=== PATIENT | female | born 2000 | race African-American/Black ===

== ENCOUNTER 2019-08-17 15:09 | Inpatient (IN) ==
[2019-08-17] MEDS ORDERED: MEPERIDINE 50 MG/1 ML VIAL IV PRN (15:30)
[2019-08-17] MEDS ORDERED: ONDANSETRON 4 MG/2 ML VIAL IV PRN (15:30)
[2019-08-17] MEDS ORDERED: DINOPROSTONE VAG GEL 10 MG SYRINGE VAG ONE (15:35)
[2019-08-17 16:00] LABS: Basophils % 0.2 % (0.0-0.8); Eosinophils # 0.1 10*3/uL (0.0-0.87); Eosinophils % 1.1 % (0.00-10.9); Hematocrit 37.5 VOL% (35.7-47.0); Hemoglobin 11.5 GM/DL (12.0-16.0); Immature Granulocytes % 0.3 %; Immature Granulocytes Absolute 0.03 #; Lymphocytes # 2.6 10*3/uL (1.4-4.0); Mean Corpuscular HGB Conc 30.7 GM/DL (32-36); Mean Corpuscular Volume 81.7 FL (87-102); Mean Platelet Volume 10.4 FL (9.6-12.0); Monocytes % 7.8 % (1.7-12.7); Neutrophils % 62.6 % (38.7-73.9); Platelet Count 239 T/CUMM (130-400); Red Blood Count 4.59 MC/CUMM (3.8-5.5); Red Cell Distribution Width 15.6 % (9.3-17.3); White Blood Count 9.4 T/CUMM (4-12)
[2019-08-17 16:32] LABS: Alanine Aminotransferase 27 U/L (13-56); Albumin 2.8 G/DL (3.4-5.0); Alkaline Phosphatase 218 U/L (45-117); Aspartate Amino Transferase 24 U/L (0-37); Bilirubin,Total < 0.39 MG/DL (0.2-1.0); Blood Urea Nitrogen 5 MG/DL (7-18); Calcium 9.2 MG/DL (8.5-10.1); Estimated Glom Filtration Rate 185 ML/MIN; Glucose 87 MG/DL (74-106); Osmolality,Calculated 265.1 MOS/KG (273-304); Total Protein 7.1 G/DL (6.4-8.3)
[2019-08-17] MEDS: BUTORPHANOL 2 MG/ML VIAL IV PRN ×2 (20:25→23:35)
[2019-08-18] MEDS: LACTATED RINGERS 1,000 ML IV SCH ×2 (02:00→11:13)
[2019-08-18] MEDS ORDERED: OXYTOCIN/LR 20 UNIT/1,000 ML BAG IV SCH (02:00)
[2019-08-18] MEDS ORDERED: CITRIC ACID/SODIUM CITRATE 30 ML UDCUP PO ONE (08:50)
[2019-08-18] MEDS ORDERED: LACTATED RINGERS 1,000 ML IV ONE (08:50)
[2019-08-18] MEDS ORDERED: diphenhydrAMINE 50 MG/1 ML VIAL IV PRN ×2 (08:50)
[2019-08-18] MEDS ORDERED: NALOXONE 0.4 MG/ML VIAL IV PRN (08:50)
[2019-08-18] MEDS ORDERED: FAMOTIDINE 20 MG/2 ML VIAL IV ONE (08:50)
[2019-08-18] MEDS ORDERED: ePHEDrine 50 MG/ML AMP IV PRN (08:50)
[2019-08-18] MEDS ORDERED: fentaNYL 2 MCG/ROPIV 0.2% EPID 100 ML EPIDURAL SCH (09:00)
[2019-08-18] MEDS ORDERED: oxyCODONE/ACETAMINOPHEN 5-325 MG TABLET PO PRN ×2 (09:27)
[2019-08-18] MEDS ORDERED: RHO(D) IMMUNE GLOBULIN 300 MCG SYRINGE IM ONE ×2 (09:27→18:09)
[2019-08-18] MEDS ORDERED: LANOLIN 50% CREAM 0.3 OZ TUBE TOP PRN (09:27)
[2019-08-18] MEDS ORDERED: WITCH HAZEL PADS 100/JAR TOP PRN (09:27)
[2019-08-18] MEDS ORDERED: HYDROCORTISONE 2.5% RECTAL CREAM 30 GM TUBE TOP PRN (09:27)
[2019-08-18] MEDS ORDERED: DIPH/TET/ACEL PERT BOOSTER VACCINE 0.5 ML VIAL IM ONE (09:27)
[2019-08-18] MEDS ORDERED: DOCUSATE SODIUM 100 MG CAPSULE PO SCH (09:27)
[2019-08-18] MEDS ORDERED: ACETAMINOPHEN 325 MG TABLET PO PRN ×2 (09:27→18:09)
[2019-08-18] MEDS ORDERED: IBUPROFEN 800 MG TABLET PO PRN (09:27)
[2019-08-18] MEDS ORDERED: MEASLES/MUMPS/RUBELLA VACCINE 0.5 ML VIAL SUBCUT ONE (09:27)
[2019-08-18] MEDS ORDERED: BISACODYL 10 MG SUPP RECTAL PRN (09:27)
[2019-08-18] MEDS ORDERED: OXYTOCIN/LR 20 UNIT/1,000 ML BAG IV ONE ×2 (09:27→18:09)
[2019-08-18] MEDS ORDERED: BENZOCAINE 20%/MENTHOL 0.5% SPRAY 56 GM CAN TOP PRN (09:27)
[2019-08-18] MEDS ORDERED: ONDANSETRON 4 MG/2 ML VIAL ONE ×2 (09:36→18:03)
[2019-08-18 11:36] LABS: Apearance,Urine CLEAR (Clear); Bilirubin,Urine Negative (Negative); Blood, Urine Negative (Negative); Glucose,Urine (UA) Negative (Negative); Ketones,Urine Negative (Negative); Mucus,Urine Occasional /LPF (Occasional); Nitrite,Urine Negative (Negative); Protein,Urine Negative; RBC,Urine 1 /HPF (0-4); Squamous Epithelial Cell,Urine Occasional /HPF (0-10); Urine Color Yellow (Yellow); Urine Specific Gravity 1.014 (1.001-1.035); Urine Urobilinogen < 2.0 EU/DL (0.2-1.0); WBC,Urine 1 /HPF (0-6)
[2019-08-18] MEDS ORDERED: OXYTOCIN/LR 30 UNIT/1,000 ML BAG IV ONE (16:35)
[2019-08-18] MEDS ORDERED: OXYTOCIN 10 UNIT/ML VIAL IM ONE (16:35)
[2019-08-18] MEDS ORDERED: ceFAZolin 3,000 MG in SYRINGE 1 EACH IV ONE (16:35)
[2019-08-18] MEDS ORDERED: LIDOCAINE MPF 2% /EPI 20 ML VIAL ONE (18:03)
[2019-08-18] MEDS ORDERED: MORPHINE 10 MG/10 ML VIAL ONE (18:03)
[2019-08-18] MEDS ORDERED: SIMETHICONE CHEW 80 MG TABLET PO PRN (18:09)
[2019-08-18] MEDS ORDERED: ONDANSETRON 4 MG/2 ML VIAL IV PRN (18:09)
[2019-08-18] MEDS ORDERED: LACTATED RINGERS 1,000 ML IV SCH (18:30)
[2019-08-19] MEDS: ceFAZolin 1,000 MG in SYRINGE 1 EACH IV SCH ×2 (01:29→09:59)
[2019-08-19] MEDS ORDERED: diphenhydrAMINE 50 MG/1 ML VIAL ONE (03:54)
[2019-08-19] MEDS ORDERED: diphenhydrAMINE 50 MG/1 ML VIAL IV PRN (03:55)
[2019-08-19 05:24] LABS: Basophils % 0.2 % (0.0-0.8); Eosinophils % 0.2 % (0.00-10.9); Hematocrit 35.8 VOL% (35.7-47.0); Hemoglobin 11.1 GM/DL (12.0-16.0); Immature Granulocytes % 0.5 %; Immature Granulocytes Absolute 0.09 #; Lymphocytes # 2.5 10*3/uL (1.4-4.0); Lymphocytes % 13.5 % (21.3-54.2); Mean Corpuscular Volume 82.1 FL (87-102); Mean Platelet Volume 11.1 FL (9.6-12.0); Monocytes % 8.3 % (1.7-12.7); Neutrophils % 77.3 % (38.7-73.9); Platelet Count 220 T/CUMM (130-400); Red Blood Count 4.36 MC/CUMM (3.8-5.5); Red Cell Distribution Width 15.6 % (9.3-17.3); White Blood Count 18.7 T/CUMM (4-12)
[2019-08-19] MEDS: DOCUSATE SODIUM 100 MG CAPSULE PO SCH ×3 (07:39→21:40)
[2019-08-19] MEDS: MULTIVITAMIN (PRENATAL) TABLET PO SCH (09:41)
[2019-08-19] MEDS: MAGNESIUM HYDROXIDE SUSP 30 ML UDCUP PO PRN (21:40)
[2019-08-19] MEDS: IBUPROFEN 800 MG TABLET PO PRN (21:40)
[2019-08-19] MEDS: METOCLOPRAMIDE 10 MG TABLET PO SCH (22:00)
[2019-08-20] MEDS: METOCLOPRAMIDE 10 MG TABLET PO SCH ×2 (04:58→09:37)
[2019-08-20 07:36] VITALS: BP 109/67
[2019-08-20] MEDS: MULTIVITAMIN (PRENATAL) TABLET PO SCH (09:36)
[2019-08-20] MEDS: DOCUSATE SODIUM 100 MG CAPSULE PO SCH (09:37)
[2019-08-20] MEDS: MAGNESIUM HYDROXIDE SUSP 30 ML UDCUP PO PRN (09:37)
[2019-08-20] MEDS: IBUPROFEN 800 MG TABLET PO PRN (10:40)
== END 2019-08-20 14:40 | disposition home or self-care (01) | DRG 788 ==
LOC: N.LDOUT 15:09 → N.LD 15:15 → N.OB 08-18 22:23
PROVIDERS: ADMIT Obstetrics & Gynecology; ATTEND Obstetrics & Gynecology
PROC: LDCSECT (ICD-10-PCS; 2019-08-18 17:00)